=== PATIENT | male | born 1935 | race Caucasian/White ===

== ENCOUNTER 2016-02-28 09:23 | Emergency (ER) | payer OTHER ==
[~2016-02-28] VITALS: Ht 167.6 cm; Wt 66.4 kg
[~2016-02-28 09:23] MED LIST: ACETAMINOPHEN325 M1 PO; AMIODARONE HCL200 MG PO; ASPIR 8181 M1 PO; CIPRO500 MG PO; COMPAZINE10 MG PO; COUMADIN4 MG PO; COUMADIN5 MG PO; ENDOCET 5-3251 EACH PO; FINASTERIDE5 MG PO; FONDAPARIN2.5 MG/0.5 SC; HYCET 7.5 MG-3473 ML PO; HYDROCODON-ACE1 EAC7 PO; KEFLEX500 MG PO; LIDOCAINE700 MG TD; MAGNESIUM OXID500 MG PO; MULTIVITAMIN1 EAC2 PO; OMEPRAZOLE40 M1 PO; OXAYDO5 MG PO; PERCOCET 5/31 TABLET PO; PREDNISONE1 MG/ML PO; PROAIR HFA8.5 GM IH; PROVENTIL HFA6.7 GM IH; RAPAFLO4 MG PO; RAPAFLO8 MG PO; ROCEPHIN 2 GM VI2 GM IM; SENNA PLUS TAB1 EACH PO; TAMSULOSIN HCL0.4 MG PO; TRAMADOL HCL50 MG PO; TYLENOL EXTRA500 MG PO; TYLENOL REGULA325 MG PO; VIRTUSSIN AC L473 ML PO; ZOFRAN8 MG PO
[2016-02-28 10:19] LABS: EOSINOPHIL (%) 2.2 % (0-5); EOSINOPHIL COUNT 0.1 K/uL (0-0.3); HEMATOCRIT 40.1 % (38.0-50.0); IMMATURE GRANULOCYTE (%) 0.2 % (0.0-0.7); IMMATURE GRANULOCYTE COUNT 0.1 K/uL; MCHC 32.7 G/DL (30.0-36.0); MCV 94.8 FL (86-99); MEAN PLAT.VOLUME 8.8 uM^3 (9.0-12.4); MONOCYTE (%) 9.8 % (3-12); MONOCYTE COUNT 0.4 K/uL (0-0.8); NEUTROPHIL (%) 64.1 % (45-76); NEUTROPHIL COUNT 2.6 K/uL (1.8-6.4); PLATELET COUNT 144 K/uL (156-360); RBC DIS.WIDTH-CV 14.9 % (11.8-14.6); RBC DIS.WIDTH-SD 49.4 % (39-53); RED BLOOD COUNT 4.23 M/uL (4.00-5.50); WHITE BLOOD COUNT 4.1 K/uL (4.1-10.2)
[2016-02-28 10:29] LABS: CHLORIDE 109 mEq/L (99-109); POTASSIUM 3.8 mEq/L (3.7-5.4); SODIUM 142 mEq/L (136-147)
[2016-02-28 10:31] LABS: GLUCOSE 90 mg/dL (70-99)
[2016-02-28 10:32] LABS: ANION GAP 5 MEQ/L (2-14)
[2016-02-28 10:35] LABS: GFR ESTIMATE (CALCULATED) > 59 mL/min/; UREA NITROGEN (BUN) 28 mg/dL (9-23)
[2016-02-28 13:32] VITALS: BP 133/94
== END 2016-02-28 13:37 | disposition home or self-care (01) ==
LOC: EME → EDBD 09:23 → EME 13:37
PROVIDERS: Emergency Medicine
DX: M79.662 Pain in left lower leg (principal); Z86.711 Personal history of pulmonary embolism; Z87.442 Personal history of urinary calculi; Z85.01 Personal history of malignant neoplasm of esophagus; Z79.01 Long term (current) use of anticoagulants; K21.9 Gastro-esophageal reflux disease without esophagitis
CPT/HCPCS: 80048; 85025; 93971; 99281; 99284

== ENCOUNTER → 2016-07-27 | Outpatient (CLI) | payer OTHER | END | disposition home or self-care (01) | LOC: RAD 09:53 | DX: R59.9 Enlarged lymph nodes, unspecified (principal); K59.00 Constipation, unspecified; K57.30 Diverticulosis of large intestine without perforation or abscess without bleeding; N28.1 Cyst of kidney, acquired; N20.0 Calculus of kidney; K83.8 Other specified diseases of biliary tract | CPT/HCPCS: 71260; 74177 ==

== ENCOUNTER → 2016-08-10 | Outpatient (CLI) | payer OTHER ==
[2016-08-10 10:03] LABS: PROTHROMBIN TIME 11.6 (9.2-11.2); PTT 29.2 (25-32)
[2016-08-10 10:30] LABS: INTER. NORMALIZED RATIO 1.1
[2016-08-12 11:42] LABS: Flow Number of Markers 22 (()); Flow Spec Viability 40 % (()); Flow Specimen Type LYMPH NODE (())
== END | disposition home or self-care (01) ==
LOC: OPR 08:35 → EDSTATUS 09:00
PROVIDERS: Internal Medicine Hematology & Oncology
PROC: 07BJ3ZX Excision of Left Inguinal Lymphatic, Percutaneous Approach, Diagnostic (ICD-10-PCS; principal; 2016-08-10)
DX: C77.4 Secondary and unspecified malignant neoplasm of inguinal and lower limb lymph nodes (principal)
CPT/HCPCS: 76942; 85610; 85730; 88184 90; 88185 90; 88189 90; 88305; 88341 TC; 88342 TC; J3010

== ENCOUNTER → 2016-10-07 | Outpatient (CLI) | payer OTHER | END | disposition home or self-care (01) | LOC: RAD 09:11 | DX: N28.1 Cyst of kidney, acquired (principal); M47.896 Other spondylosis, lumbar region; M47.898 Other spondylosis, sacral and sacrococcygeal region; M16.0 Bilateral primary osteoarthritis of hip; R93.41 Abnormal radiologic findings on diagnostic imaging of renal pelvis, ureter, or bladder | CPT/HCPCS: 72193 ==

== ENCOUNTER 2017-04-12 08:15 | Day surgery (SDC) | payer OTHER ==
[~2017-04-12] VITALS: Ht 165.1 cm; Wt 60.0 kg
[~2017-04-12 08:15] MED LIST changes: +EXTRA STRENGTH500 M1 PO; +ZANTAC75 M1 PO
== END 2017-04-12 11:40 | disposition home or self-care (01) ==
LOC: CATH 08:15
DX: Z45.2 Encounter for adjustment and management of vascular access device (principal); I87.8 Other specified disorders of veins; C43.9 Malignant melanoma of skin, unspecified; C15.9 Malignant neoplasm of esophagus, unspecified
CPT/HCPCS: C1788; C1894; J0690; J1644; J2250; J3010; S0020